=== PATIENT | male | born 1965 | race Asian ===

== ENCOUNTER → 2024-03-03 12:32 | Outpatient (BNVA) | payer SELFPAY | PROVIDERS: PCP Internal Medicine; Visit Provider Physician Assistant | DX: Z02.79 Encounter for issue of other medical certificate (principal) ==

== ENCOUNTER 2024-03-24 10:31 | Outpatient (AMB) | payer BC, SELFPAY ==
--- NOTE | 2024-03-24 10:42 | AM.OFFWIN_ITS ---
Intake Vital Signs 03/24/24 10:43 Height 5 ft 6 in Weight 164 lb BMI 26.5 BP 114/70 Blood Pressure Location Rt brachial Position Sitting Pulse 92 Pulse Source Pulse Oximeter Temp 99.5 F Temp Source Oral Pulse Oximetry (%) 98 Oxygen Delivery Method Room Air Intake Visit Reasons: EP Chest pain/back LT side Intake Note: pt c/o chest pain and lower back pain. Started yesterday Patient Tobacco Use Status: Never used Tobacco Allergies No Known Allergies [No Known Allergies*] Allergy (Verified 03/24/24 10:56) HPI HPI Comments History of Present Illness Details Patient is a 58-year-old male complaining of left-sided chest pain that radiates to his back. He denies any nausea, vomiting, sweating, heart palpitations, lightheadedness, dizziness. He states this happened 1 time before about 5 years ago, he went to an emergency room in [place] and they told him his blood pressure was extremely high, however he does not take a blood pressure medication. He denies any cardiac history and states he just takes a statin daily. He denies any trauma to the area, lifting anything heavy or moving anything recently and he states he can not reproduce the pain if he pushes on his chest or shoulder or back. He states he does get a little short of breath when he leans forward. He states when he moves his left arm all the way towards his ear, sometimes he can feel the pain in his chest but he states last night he was just lying in bed and he was having the pain, he was not moving his arm. [facility] Social History Patient Tobacco Use Status: Never used Tobacco Review of Systems Const All systems reviewed & are unremarkable except as noted in HPI and below Physical Exam Vital Signs: Last Vital Signs Temp 99.5 F 03/24/24 10:43 Pulse 92 03/24/24 10:43 BP 114/70 03/24/24 10:43 Pulse Ox 98 03/24/24 10:43 Oxygen Delivery Method Room Air 03/24/24 10:43 BMI result Body Mass Index 26.5 Const General: cooperative, healthy appearing, comfortable, no acute distress and well developed Orientation/consciousness: patient oriented x3 Limitations: no limitations HEENT Head: Yes normal to inspection Ears: hearing grossly normal bilaterally General nose exam: Normal external nose present Face and sinus: Yes normal facial exam Eyes General: appearance normal, both eyes and all related structures Neck Neck: Yes normal visual inspection and Yes full ROM Chest Chest palpation & inspection: normal inspection of the chest and normal palpation of entire chest wall Resp Effort & Inspection: normal respiratory effort and able to speak in complete sentences Auscultation: clear to auscultation bilaterally Cardio Rate: regular rate Rhythm: regular rhythm Heart sounds: normal S1 and S2 GI Inspection: Yes normal to inspection Palpation (GI): Soft to palpation and nontender Back/Spine/Pelvis Other: No tenderness to palpation to left shoulder, left scapula and left upper back, left cervical muscles Cervical Spine: cervical ROM normal and No Cervical spine tenderness Skin General skin exam: no rashes or lesions noted Neuro General: patient oriented x3 Extrem General: Yes normal to inspection Left upper extremity: normal to inspection, full ROM and shoulder/upper arm Details: inspection abnormal and normal ROM; no tenderness, no swelling, no lacerations, no ecchymosis, no deformity and no unsual warmth Office Procedures EKG Details: NSR 85BPM, no acute changes [id number], Complete Assessment & Plan Assessment & Plan (1) Left-sided chest pain: Code(s): R07.9 - Chest pain, unspecified Plan: Vital signs are stable, EKG NSR no acute changes, pain is not reproducible with palpation on physical exam, patient is well-appearing. As I can not rule out a cardiac event, explained this to patient, recommended he go to the emergency department for a thorough workup. His daughter is going to drive him to [facility]. Plan see above Coding Level of Care Code New Pt Level 4 (47178) Diagnoses Left-sided chest pain R07.9 CPT Codes EKG - CPT: 25134-[id number], Complete ([id number])
[2024-03-24 10:43] VITALS: BP 114/70; PULSE 92; TEMP 37.5; O2SAT 98; BMI 26.5
== END 2024-03-24 11:29 | disposition home or self-care (01) ==
PROVIDERS: PCP Internal Medicine; Visit Provider Physician Assistant
DX: R07.9 Chest pain, unspecified (principal)
CPT/HCPCS: 93000; 99204